=== PATIENT | female | born 1980 | race Caucasian/White ===

== ENCOUNTER 2022-05-29 11:16 | Emergency (ER) | payer MEDICAID, SELFPAY ==
[2022-05-29 11:18] VITALS: BP 119/78; PULSE 64; RESP 16; TEMP 36.4; O2SAT 100; BMI 19.8
--- NOTE | 2022-05-29 12:20 | ED.VIS.GI ---
HPI HPI - GI History of Present Illness Chief Complaint: Diarrhea Narrative Narrative: Patient presenting with diarrhea which has had for the last 11 days. She states that it did turn black but she admits to taking Pepto-Bismol. Patient not had any bloody stool. Patient does not have any nausea or vomiting. Patient states she returned home 11 days ago from her [facility] where she competed in [employer]. She states he did heavy biking and running. [place] She states that she did eat from water sources which were sketchy. She also developed a lot of bloating and gas and cramping while she was there. She states that she spoke with a friend of hers who is a physician who recommended metronidazole to 50 mg p.o. 3 times daily which she took for 10 days. Her diarrhea did resolve over the second half of her trip which was 2 months long in total. She states that upon arriving the diarrhea came back. She does not feel physically ill. She states she does not believe she is dehydrated because she is drinking a lot of water. She states she is drinking beet juice and taking probiotics. She states she did ride her bike 2 days ago and did not have any difficulty. He has not had a fever, chills, body aches. She denies urinary or vaginal complaints. She has no abdominal pain except for the cramping when she is having diarrhea. No skin color changes. No rashes. [facility] Medical History Internal hemorrhoid Home Medications metronidazole 250 mg tablet 250 mg PO TID #14 tabs 05/29/22 [Rx Last Taken Unknown] Allergy/AdvReac Type Severity Reaction Status Date / Time No Known Allergies Allergy Verified 05/29/22 11:20 Social History Smoking Status: Former smoker ROS ROS ED Constitutional Constitutional ED: Denies chills or fever(s) ENT ENT ED: Denies rhinorrhea Cardiovascular Cardiovascular: Denies palpitations or racing heartbeat Respiratory/Chest Respiratory/Chest: Denies cough or dyspnea Gastrointestinal Gastrointestinal: Reports diarrhea; Denies abdominal pain Genitourinary Genitourinary ED: Denies dysuria or hematuria Musculoskeletal Musculoskeletal: Denies arthralgias Integumentary Denies abscess or rash Neurologic Neurologic: Denies headache(s) or paresthesias Psychiatric Psychiatric: Denies anxiety or depression EXAM Physical Exam Const Vital Signs: 05/29/22 11:18 Temperature 97.5 F L Temperature Source Temporal Pulse Rate 64 Respiratory Rate 16 Blood Pressure 119/78 Blood Pressure Mean 91 Pulse Ox 100 Oxygen Delivery Method Room Air Positive well nourished General Appearance ED: NAD; Negative for pallor HEENT Reports moist mucous membranes normocephalic and atraumatic Eyes General Eye ED: Negative for pale conjunctiva or scleral icterus Neck no lymphadenopathy Resp normal respiratory effort Effort and Inspection: respiratory distress Auscultation: Negative for rales, rhonchi or wheezes Cardio regular rate and regular rhythm GI non-tender, non-distended and no masses Back/Spine no CVA tenderness Extremity General Extremety ED: Negative for edema General Extremity: Negative for edema Neuro CN's II-XII intact bilaterally, moves all extremities and no sensory deficits noted Sensorium / Orientation: alert Motor Exam: strength 5/5 throughout Psych mental status grossly normal and thought process normal Skin General Skin Exam: Negative for jaundice or pallor Lesions: no lesions MDM MDM MDM Narrative Medical decision making narrative: Will obtain a CBC, liver enzymes, renal function. Patient also will give a stool sample for testing. CBC shows leukopenia with white blood cell count of 3.7. Hemoglobin 11.9. Platelets 244. Renal function electrolytes are normal. LFTs are unremarkable. Patient was given a prescription for Flagyl if he does come back with Giardia. She is to follow-up for the results of these tests. Impression: 1. Diarrhea 2. Leukopenia Lab Data Labs: Laboratory Results - last 24 hr 05/29/22 05/29/22 05/29/22 11:48 11:48 11:48 WBC 3.7 L RBC 3.89 L Hgb 11.9 L Hct 37.1 MCV 95.4 MCH 30.6 MCHC 32.1 RDW Std Deviation 48.9 H RDW Coeff of Demetrio 14.0 Plt Count 244 MPV 11.1 Immature Gran % (Auto) 0.300 Neut % (Auto) 41.2 L Lymph % (Auto) 43.2 H [place] % (Auto) 10.9 H Eos % (Auto) 3.3 Baso % (Auto) 1.1 H Absolute Neuts (auto) 1.5 L Absolute Lymphs (auto) 1.59 Nucleated RBC % 0 Sodium 139 Potassium 4.5 Chloride 107 Carbon Dioxide 29.0 Anion Gap 3 L BUN 14 Creatinine 0.56 Estim Creat Clear Calc 131.71 Est GFR (MDRD) Af Amer 153 Est GFR (MDRD) Non-Af 127 BUN/Creatinine Ratio 25.2 H Glucose 95 Calcium 9.0 Total Bilirubin 0.60 Direct Bilirubin 0.15 AST 24 ALT 61 H Alkaline Phosphatase 60 Total Protein 6.9 Albumin 3.5 Globulin 3.4 Discharge Plan Triage Chief Complaint: Diarrhea ED Provider: Franky Talley Dx/Rx/DC Orders Instructions: ED Diarrhea, Unknown Cause Prescriptions: New metronidazole 250 mg tablet 250 mg PO TID Qty: 14 0RF Primary Care Provider: Care Physician,No Primary Referrals: Fadi Gauthier DO [Med Staff - Active Staff] - 3-5 Days Care Physician,No Primary [Primary Care Provider] - Disposition Disposition: Home, Self Care
[2022-05-29 12:30] LABS: Absolute Lymphocyte Count 1.59 X10^3/uL (0.83-4.51); Absolute Neutrophil Count 1.5 X10^3/uL (2.0-7.7); Basophil# 0.04 X10^3/uL; Basophil% 1.1 % (0-1); Eosinophil# 0.12 X10^3/uL; Eosinophils% 3.3 % (0-5); Hematocrit 37.1 % (37-47); Hemoglobin 11.9 g/dL (12.0-15.0); Lymphocyte # 1.59 X10^3/ul (0.83-4.51); Lymphocyte % 43.2 % (19-41); Mean Corp Hgb Conc 32.1 g/dL (32-36); Mean Corpuscular Hgb 30.6 pg (27.0-32.0); Mean Corpuscular Volume 95.4 fL (81-99); Mean Platelet Vol. 11.1 fl (6.2-12.0); Monocyte% 10.9 % (0-10); NRBC Flagged by Analyzer 0 % (0-5); Neutrophil # 1.52 X10^3/uL (2.7-7.7); Neutrophil % 41.2 % (47-70); Platelet Count 244 K/mm3 (150-450); RBC Distribution Width SD 48.9 fl (35.1-43.9); Red Blood Count 3.89 M/mm3 (4.2-5.4); White Blood Count 3.7 K/mm3 (4.4-11.0)
[2022-05-29 12:46] LABS: Anion Gap 3 (5-15); BUN 14 mg/dL (7-18); BUN/Creat Ratio 25.2 RATIO (10-20); Chloride 107 mmol/L (98-107); Creatinine, Serum 0.56 mg/dL (0.55-1.02); EST Glomerular Filtration Rate 127 mL/min (>60); Est Glom Filt Rate - Afr Amer 153 mL/min (>60); Estimated Creatinine Clearance 131.71 ml/min; Glucose 95 mg/dL (74-106); Potassium 4.5 mmol/L (3.5-5.1); Sodium Level 139 mmol/L (136-145)
[2022-05-29 12:54] LABS: AST(SGOT) 24 U/L (15-37); Alanine Aminotransfer ALT/SGPT 61 U/L (13-56); Albumin, Serum 3.5 g/dL (3.2-5.0); Alkaline Phosphatase 60 U/L (45-117); Bilirubin, Direct 0.15 mg/dL (0.00-0.30); Globulin 3.4 g/dL (2.2-4.2); Protein, Total 6.9 g/dL (6.4-8.2)
== END 2022-05-29 14:28 | disposition home or self-care (01) ==
PROVIDERS: Emergency Provider Student in an Organized Health Care Education/Training Program; Visit Provider Student in an Organized Health Care Education/Training Program
DX: R19.7 Diarrhea, unspecified (principal); D72.819 Decreased white blood cell count, unspecified; Z87.891 Personal history of nicotine dependence
CPT/HCPCS: 80048; 80076; 83630; 85025; 87177; 87209; 87493; 87506; 87635; 99283; A4216; U0003; U0005